=== PATIENT | female | born 1960 | race Hispanic/Latino ===

== ENCOUNTER 2018-09-11 15:42 | Emergency (ER) | payer OTHER ==
[~2018-09-11] VITALS: Ht 162.6 cm; Wt 93.0 kg
[~2018-09-11 15:42] MED LIST: CITALOPRAM HBR20 MG PO; DIGOXIN250 MCG PO; FUROSEMIDE40 MG PO; LISINOPRIL2.5 MG PO; METOPROLOL TART25 MG PO; PANTOPRAZOLE SO40 MG PO
--- OUTSIDE RECORDS SUMMARY | 2018-09-11 15:46 | XMS REPORT ---
Author Author [facility] Address Unknown Phone Unavailable Care Team Providers Care Top Flavor Attendant Name Role Phone Unavailable Unavailable Problems This patient has no known problems. Allergies, Adverse Reactions, Alerts This patient has no known allergies or adverse reactions. Medications This patient has no known medications. Results Test Description Test Time Test Comments Text Results Atomic Results Result Comments SCR MAMM BILATERAL WOLF CAD DIGITAL 2018-09-02 15:02:48 - SCR MAMM BILATERAL WOFL CAD DIGITALBILATERAL DIGITAL SCREENING MAMMOGRAM 3D/2D WITH CAD: 09/02/2018CLINICAL: Asymptomatic. Digital breast tomosynthesis was performed in addition to routine CC and MLO views. Current mammographic images were evaluated by either a [employer] M-Vu or a [employer] ImageChecker CAD (computer aided detection system). Comparison is made to exam dated 07/09/2015 mammogram - [facility]. The tissue of both breasts is heterogeneously dense. This may lower the sensitivity of mammography. There are nodular densities bilaterally that most likely represent benign fibroadenomas, cysts, or nodular breast tissue, however this must be confirmed with ultrasound. No suspicious mass, architectural distortion, malignant type calcification, or lymph node abnormality detected. IMPRESSION: INCOMPLETE ASSESSMENT: ADDITIONAL IMAGING EVALUATION RECOMMENDEDUltrasound is recommended. Dana Jiménez M.D. dm/:09/02/2018 15:02:48 copy to: Dana Jiménez M.D., ph: [phone], fax: [phone] Technologist: Anali Garcia , [facility] sent: Additional Imaging Mammogram BI-RADS: 0 Indeterminate
--- NOTE | 2018-09-11 16:22 | Diagnostic Imaging Report ---
KNEE 3VW LT - HOPD - 4 views HISTORY: Pain. Slipped and hurt the left knee. COMPARISON: None available. FINDINGS: Bones: No acute displaced fracture. Osseous alignment is within normal limits. Joints: Trace degenerative changes in the medial compartment. Soft tissues: The soft tissues appear unremarkable. IMPRESSION: No acute radiographic abnormality. Signed by: Dr. Filiberto Ulrich M.D. on 09/11/2018 4:18 PM
[2018-09-11 16:46] VITALS: BP 139/80
== END 2018-09-11 16:48 | disposition home or self-care (01) ==
LOC: FSED 15:42
DX: S80.02XA Contusion of left knee, initial encounter (principal); S80.212A Abrasion, left knee, initial encounter; W01.0XXA Fall on same level from slipping, tripping and stumbling without subsequent striking against object, initial encounter; Y93.01 Activity, walking, marching and hiking; Y92.488 Other paved roadways as the place of occurrence of the external cause
CPT/HCPCS: 99283

== ENCOUNTER 2021-03-13 09:02 | Inpatient (IN) | payer OTHER ==
[~2021-03-13] VITALS: Ht 162.6 cm; Wt 99.8 kg
[2021-03-13 09:40] LABS: BASOPHILS % 0.4 % (0.0-1.0); EOSINOPHILS # (AUTO) 0.1 (0.0-0.4); EOSINOPHILS % 1.4 % (0.0-6.0); HEMATOCRIT 34.2 % (34.2-44.1); HEMOGLOBIN 10.5 g/dL (12.0-16.0); LYMPHOCYTES % 11.5 % (18.0-39.1); MEAN CORPUSCULAR HEMOGLOBIN 31.2 pg (28-32); MEAN CORPUSCULAR HGB CONC 30.7 g/dL (31-35); MEAN CORPUSCULAR VOLUME 101.5 fL (81-99); MONOCYTES # (AUTO) 0.8 (0.2-0.8); MONOCYTES % 9.5 % (4.4-11.3); NEUTROPHILS # (AUTO) 6.5 (2.1-6.9); NEUTROPHILS % 76.5 % (38.7-80.0); PLATELET COUNT 159 x10e3/uL (140-360); RED BLOOD COUNT 3.37 x10e6/uL (3.6-5.1); RED CELL DISTRIBUTION WIDTH 13.8 % (11.7-14.4)
[2021-03-13] MEDS ORDERED: Morphine 4mg Syringe 4 MG/ML INJ IV ONE (10:00)
[2021-03-13] MEDS ORDERED: ONDANSETRON HCL INJ 2MG/ML 2ML 2 MG/ML VIAL IV ONE (10:00)
[2021-03-13 10:27] LABS: INR 0.84; PARTIAL THROMBOPLASTIN TIME 21.2 seconds (23.8-35.5); PROTHROMBIN TIME 12.2 seconds (11.9-14.5)
[2021-03-13 10:37] LABS: ALANINE AMINOTRANSFERASE 38 IU/L (0-55); ALBUMIN 3.4 g/dL (3.5-5.0); ALBUMIN/GLOBULIN RATIO 0.8 (0.8-2.0); ALKALINE PHOSPHATASE 170 IU/L (40-150); AMYLASE 53 U/L (25-125); ANION GAP 17.7 mmol/L (8-16); BLOOD UREA NITROGEN 33 mg/dL (7-26); BUN/CREATININE RATIO 28 (6-25); CALCIUM 9.4 mg/dL (8.4-10.2); CARBON DIOXIDE 18 mmol/L (22-29); CHLORIDE 108 mmol/L (98-107); CREATINE KINASE 100 IU/L (29-168); CREATININE, SERUM 1.16 mg/dL (0.57-1.11); EST GLOMERULAR FILTRATION RATE 48 ML/MIN (60-); GLUCOSE 97 mg/dL (74-118); LIPASE 84 U/L (8-78); POTASSIUM 4.7 mmol/L (3.5-5.1); SODIUM 139 mmol/L (136-145)
[2021-03-13] MEDS ORDERED: SODIUM CHLORIDE 0.9% 500ML 500 ML IV ONE (11:00)
[2021-03-13] MEDS ORDERED: IOPAMIDOL 370 MG/ML 200 ML INFUS..BTL INJ ONE (11:12)
[2021-03-13] MEDS ORDERED: SODIUM CHLORIDE 0.9% 50ML 0 ML ONE (11:12)
[2021-03-13] MEDS ORDERED: Morphine 4mg Syringe 4 MG/ML INJ IV PRN (12:45)
[2021-03-13] MEDS ORDERED: ONDANSETRON HCL INJ 2MG/ML 2ML 2 MG/ML VIAL IV PRN (12:45)
[2021-03-13] MEDS ORDERED: SODIUM CHLORIDE 0.9% 1000ML 1,000 ML IV ONE (12:45)
[2021-03-13] MEDS: PIPERACILLIN/TAZOBACTAM 3.375 GM in SODIUM CHLORIDE 0.9% 50ML 50 ML IV SCH ×3 (13:04→23:16)
[2021-03-13 17:05] VITALS: BP 134/85
[2021-03-13 17:06] VITALS: BP 134/85
[2021-03-13] MEDS ORDERED: TRULICITY1.5 MG/0.5 SC (17:41)
[2021-03-13] MEDS ORDERED: LYRICA50 MG PO (17:44)
[2021-03-13] MEDS ORDERED: ROPINIROLE HC0.25 MG PO (17:44)
[2021-03-13] MEDS ORDERED: MOBIC15 MG PO (17:44)
[2021-03-13] MEDS ORDERED: LISINOPRIL10 MG PO (17:44)
[2021-03-13] MEDS ORDERED: CRESTOR10 MG PO (17:44)
[2021-03-13 21:02] VITALS: BP 145/77
[2021-03-14] VITALS (8 sets, daily range): BP systolic 126–174; BP diastolic 42–91
[2021-03-14] MEDS: PIPERACILLIN/TAZOBACTAM 3.375 GM in SODIUM CHLORIDE 0.9% 50ML 50 ML IV SCH ×4 (04:06→23:30)
[2021-03-14 05:01] LABS: BASOPHILS % 0.6 % (0.0-1.0); EOSINOPHILS # (AUTO) 0.1 (0.0-0.4); EOSINOPHILS % 4.3 % (0.0-6.0); HEMATOCRIT 30.4 % (34.2-44.1); HEMOGLOBIN 9.9 g/dL (12.0-16.0); LYMPHOCYTES # (AUTO) 0.7 (1.0-3.2); LYMPHOCYTES % 21.3 % (18.0-39.1); MEAN CORPUSCULAR HGB CONC 32.6 g/dL (31-35); MEAN CORPUSCULAR VOLUME 95.3 fL (81-99); MONOCYTES # (AUTO) 0.4 (0.2-0.8); MONOCYTES % 12.5 % (4.4-11.3); PLATELET COUNT 174 x10e3/uL (140-360); RED BLOOD COUNT 3.19 x10e6/uL (3.6-5.1); RED CELL DISTRIBUTION WIDTH 13.4 % (11.7-14.4)
[2021-03-14 05:21] LABS: ALBUMIN 2.8 g/dL (3.5-5.0); ALBUMIN/GLOBULIN RATIO 0.9 (0.8-2.0); ANION GAP 13.1 mmol/L (8-16); CALCIUM 8.6 mg/dL (8.4-10.2); CREATININE, SERUM 0.86 mg/dL (0.57-1.11); POTASSIUM 4.1 mmol/L (3.5-5.1)
[2021-03-14 07:14] LABS: CREATINE KINASE MB 0.6 ng/mL (0-5.0)
[2021-03-14] MEDS ORDERED: KETOROLAC TROMETHAMINE 30 MG/ML VIAL IV ONE (11:45)
[2021-03-14] MEDS: METOPROLOL TARTRATE 25 MG TAB PO SCH (11:56)
[2021-03-14] MEDS: FUROSEMIDE 40 MG TAB PO SCH ×2 (11:56→17:00)
[2021-03-14] MEDS: LISINOPRIL 10 MG TAB PO SCH (11:57)
[2021-03-14 13:22] LABS: CREATINE KINASE MB 0.6 ng/mL (0-5.0)
[2021-03-14] MEDS: ROPINIROLE HCL 0.25 MG TAB PO SCH (14:20)
[2021-03-14] MEDS ORDERED: SODIUM CHLORIDE 0.9% 250ML 250 ML ONE (23:45)
[2021-03-15] VITALS: BP 131/88
[2021-03-15 04:45] VITALS: BP 164/80
[2021-03-15 04:56] LABS: BASOPHILS % 0.8 % (0.0-1.0); EOSINOPHILS # (AUTO) 0.2 (0.0-0.4); HEMATOCRIT 34.4 % (34.2-44.1); LYMPHOCYTES # (AUTO) 0.8 (1.0-3.2); LYMPHOCYTES % 17.2 % (18.0-39.1); MEAN CORPUSCULAR HEMOGLOBIN 30.6 pg (28-32); MEAN CORPUSCULAR VOLUME 95.8 fL (81-99); MONOCYTES # (AUTO) 0.5 (0.2-0.8); MONOCYTES % 11.1 % (4.4-11.3); NEUTROPHILS # (AUTO) 3.2 (2.1-6.9); NEUTROPHILS % 66.7 % (38.7-80.0); PLATELET COUNT 190 x10e3/uL (140-360); RED BLOOD COUNT 3.59 x10e6/uL (3.6-5.1); RED CELL DISTRIBUTION WIDTH 13.1 % (11.7-14.4)
[2021-03-15 05:20] LABS: ALBUMIN 3.2 g/dL (3.5-5.0); ALBUMIN/GLOBULIN RATIO 0.9 (0.8-2.0); ANION GAP 13.7 mmol/L (8-16); CALCIUM 9.8 mg/dL (8.4-10.2); POTASSIUM 3.7 mmol/L (3.5-5.1)
[2021-03-15] MEDS: PIPERACILLIN/TAZOBACTAM 3.375 GM in SODIUM CHLORIDE 0.9% 50ML 50 ML IV SCH ×3 (06:15→16:08)
[2021-03-15 07:54] VITALS: BP 154/71
[2021-03-15 08:21] VITALS: BP 154/71
[2021-03-15] MEDS: FUROSEMIDE 40 MG TAB PO SCH ×2 (08:57→16:08)
[2021-03-15] MEDS: METOPROLOL TARTRATE 25 MG TAB PO SCH (08:57)
[2021-03-15] MEDS: ROPINIROLE HCL 0.25 MG TAB PO SCH (08:58)
[2021-03-15] MEDS: LISINOPRIL 10 MG TAB PO SCH (08:58)
[2021-03-15 11:45] VITALS: BP 134/89
[2021-03-15] MEDS ORDERED: ONDANSETRON HCL 4 MG ORAL DISINTEGRATING TAB PO PRN (12:30)
[2021-03-15 15:45] VITALS: BP 137/84
== END 2021-03-15 17:15 | disposition home or self-care (01) | DRG 445 ==
LOC: ER 09:12 → ERHOLD 12:43 → MED/SURG2 17:03 → OBSVTOIN 21:22
PROVIDERS: ADMIT Family Medicine; ATTEND Family Medicine
DX: K82.4 Cholesterolosis of gallbladder (principal); N17.9 Acute kidney failure, unspecified; N18.9 Chronic kidney disease, unspecified; Z95.0 Presence of cardiac pacemaker; Z87.891 Personal history of nicotine dependence; E11.9 Type 2 diabetes mellitus without complications; E86.0 Dehydration; Z20.822 Contact with and (suspected) exposure to COVID-19
CPT/HCPCS: 36415; 74177; 76705; 78227; 80053; 82150; 82550; 82553; 82948; 83690; 83735; 83880; 84484; 85025; 85610; 85730; 93005; 99284; A9537; J1885; J2270; J2405; J2543; J7030; J7040; J7050; Q9967; U0002